=== PATIENT | male | born 1960 | race Caucasian/White ===

== ENCOUNTER 2020-09-18 07:35 | Outpatient (CLI) | payer OTHER | END 2020-09-18 07:41 | disposition home or self-care (01) | LOC: LAB 07:35 | PROVIDERS: ATTEND Urology | DX: I10 Essential (primary) hypertension (principal); E78.00 Pure hypercholesterolemia, unspecified; N39.0 Urinary tract infection, site not specified; R73.09 Other abnormal glucose; N40.1 Benign prostatic hyperplasia with lower urinary tract symptoms; E29.1 Testicular hypofunction ==

== ENCOUNTER 2021-01-28 06:20 | Outpatient (CLI) | payer OTHER | END 2021-01-28 06:21 | disposition home or self-care (01) | LOC: LAB 06:20 | PROVIDERS: ATTEND Urology | DX: E29.1 Testicular hypofunction (principal) ==

== ENCOUNTER → 2021-08-12 06:20 | Outpatient (CLI) | payer OTHER | END | disposition home or self-care (01) | LOC: LAB 06:20 | PROVIDERS: ATTEND Urology | DX: I10 Essential (primary) hypertension (principal); E78.00 Pure hypercholesterolemia, unspecified; N39.0 Urinary tract infection, site not specified; R73.09 Other abnormal glucose ==

== ENCOUNTER → 2021-12-29 08:21 | Outpatient (CLI) | payer OTHER | END | disposition home or self-care (01) | LOC: LAB 08:21 | PROVIDERS: ATTEND Urology | DX: R31.29 Other microscopic hematuria (principal); N20.0 Calculus of kidney ==

== ENCOUNTER → 2022-08-14 06:33 | Outpatient (CLI) | payer OTHER | END | disposition home or self-care (01) | LOC: LAB 06:33 | PROVIDERS: ATTEND Urology | DX: I10 Essential (primary) hypertension (principal); E78.00 Pure hypercholesterolemia, unspecified; N39.0 Urinary tract infection, site not specified; R73.03 Prediabetes; N40.1 Benign prostatic hyperplasia with lower urinary tract symptoms; E29.1 Testicular hypofunction ==

== ENCOUNTER 2023-02-12 06:33 | Outpatient (CLI) | payer OTHER | END 2023-02-12 06:35 | disposition home or self-care (01) | LOC: LAB 06:33 | PROVIDERS: ATTEND Urology | DX: N39.0 Urinary tract infection, site not specified (principal); R73.03 Prediabetes; N40.1 Benign prostatic hyperplasia with lower urinary tract symptoms; E29.1 Testicular hypofunction; I10 Essential (primary) hypertension ==

== ENCOUNTER 2023-05-14 11:54 | Emergency (ER) | payer OTHER ==
[~2023-05-14] VITALS: Ht 165.1 cm; Wt 73.5 kg
== END 2023-05-14 13:58 | disposition home or self-care (01) ==
LOC: ER 11:54
DX: K42.9 Umbilical hernia without obstruction or gangrene (principal); Z88.0 Allergy status to penicillin

== ENCOUNTER → 2023-07-26 06:06 | Outpatient (CLI) | payer OTHER ==
[2023-07-26 07:16] LABS: URINE APPEARANCE Clear; URINE BILIRRUBIN Negative (NEGATIVE); URINE BLOOD Negative; URINE COLOR Yellow; URINE GLUCOSE Negative (NEGATIVE); URINE LEUKOCYTE Negative; URINE NITRATE Negative; URINE PROTEIN Negative (NEGATIVE)
[2023-07-26 07:22] LABS: URINE BACTERIA 0 uL (0.0-1933); URINE RBC 0.4 uL (0.0-20.8); URINE WBC 0.6 uL (0.0-23.2)
[2023-07-26 07:28] LABS: HEMATOCRIT 40.4 % (39.0-48.0); HEMOGLOBIN 14.2 g/dL (13-16.00); MEAN CELL VOLUME 91.7 fL (80.0-100.00); MEAN CORPUSCULAR HEMOGLOBIN 32.3 pg (27.00-32.0); MEAN CORPUSCULAR HGB CONC 35.2 g/dl (32.0-36.0); PLATELET COUNT 148 K/uL (150-450); RED CELL DISTRIBUTION WIDTH 13.3 % (11.5-14.5)
[2023-07-26 08:19] LABS: ALBUMIN 3.8 gm/dL (3.4-5.0); BILIRUBIN TOTAL 0.84 mg/dL (0.3-1.2); CALCIUM 9.3 mg/dL (8.5-10.1); CHOL HDL RATIO 3.5 (0-5.0); CREATININE SERUM 0.89 mg/dL (0.70-1.30); GFR 86.61; GLOBULINA 3.1 G/DL (2.4-3.5); POTASSIUM 4.34 mEq/L (3.5-5.1); TOTAL PROTEIN 6.9 gm/dL (6.4-8.2)
[2023-07-26 08:24] LABS: PROSTATIC SPECIFIC ANTIGEN 4.09 NG/ML (0.010-4.00)
== END | disposition home or self-care (01) ==
LOC: LAB 06:06
PROVIDERS: ATTEND Urology
DX: I10 Essential (primary) hypertension (principal); E78.5 Hyperlipidemia, unspecified; N39.0 Urinary tract infection, site not specified; R73.03 Prediabetes; N40.1 Benign prostatic hyperplasia with lower urinary tract symptoms; E29.1 Testicular hypofunction

== ENCOUNTER 2023-08-31 13:48 | Outpatient (CLI) | payer OTHER | END 2023-08-31 14:00 | disposition home or self-care (01) | LOC: MRI 13:48 | PROVIDERS: ATTEND Physical Medicine & Rehabilitation | DX: M54.50 Low back pain, unspecified (principal); M54.16 Radiculopathy, lumbar region | CPT/HCPCS: 72148 ==

== ENCOUNTER 2023-09-03 14:10 | Outpatient (CLI) | payer OTHER ==
[2023-09-03 15:09] LABS: CREATININE SERUM 0.89 mg/dL (0.70-1.30)
== END 2023-09-03 14:11 | disposition home or self-care (01) ==
LOC: LAB 14:10
PROVIDERS: ATTEND Radiology Diagnostic Radiology
DX: N28.1 Cyst of kidney, acquired (principal)

== ENCOUNTER 2023-09-06 07:05 | Outpatient (CLI) | payer OTHER | END 2023-09-06 07:21 | disposition home or self-care (01) | LOC: TOM 07:05 | PROVIDERS: ATTEND Urology | DX: N28.1 Cyst of kidney, acquired (principal) ==

== ENCOUNTER → 2024-03-24 06:05 | Outpatient (CLI) | payer OTHER ==
[2024-03-24 07:20] LABS: HEMATOCRIT 41.7 % (39.0-48.0); HEMOGLOBIN 14.7 g/dL (13-16.00); MEAN CELL VOLUME 93.9 fL (80.0-100.00); MEAN CORPUSCULAR HGB CONC 35.2 g/dl (32.0-36.0); PLATELET COUNT 153 K/uL (150-450); RED BLOOD COUNT 4.44 M/uL (4.00-6.00); RED CELL DISTRIBUTION WIDTH 13.1 % (11.5-14.5)
[2024-03-24 07:34] LABS: URINE APPEARANCE Clear; URINE BILIRRUBIN Negative (NEGATIVE); URINE BLOOD Negative; URINE COLOR Yellow; URINE GLUCOSE Negative (NEGATIVE); URINE KETONE Negative (NEGATIVE); URINE LEUKOCYTE Negative; URINE NITRATE Negative; URINE PROTEIN Negative (NEGATIVE)
[2024-03-24 07:41] LABS: URINE BACTERIA 2.5 uL (0.0-1933); URINE EPITHELIAL CELLS 0.3 uL (0.0-38.8); URINE RBC 0.7 uL (0.0-20.8); URINE WBC 0.4 uL (0.0-23.2)
[2024-03-24 08:55] LABS: BILIRUBIN TOTAL 0.54 mg/dL (0.3-1.2); CALCIUM 9.3 mg/dL (8.5-10.1); CHOL HDL RATIO 3.1 (0-5.0); CREATININE SERUM 0.81 mg/dL (0.70-1.30); GFR 96.56; GLOBULINA 3.2 G/DL (2.4-3.5); POTASSIUM 3.92 mEq/L (3.5-5.1); TOTAL PROTEIN 7.2 gm/dL (6.4-8.2)
[2024-03-24 09:08] LABS: PROSTATIC SPECIFIC ANTIGEN 5.11 NG/ML (0.010-4.00)
[2024-03-25 09:14] LABS: LEUTEINIZING HORMONE 8.7 mIU/mL (1.7-8.6); PROLACTIN 7.4 ng/mL (3.6-25.2)
[2024-03-28 07:07] LABS: test free 8.4 pg/mL (6.6-18.1)
== END | disposition home or self-care (01) ==
LOC: LAB 06:05
PROVIDERS: ATTEND Urology
DX: E78.00 Pure hypercholesterolemia, unspecified (principal); I10 Essential (primary) hypertension; N39.0 Urinary tract infection, site not specified; R73.03 Prediabetes; N40.1 Benign prostatic hyperplasia with lower urinary tract symptoms; E29.1 Testicular hypofunction

== ENCOUNTER 2024-04-29 10:49 | Outpatient (CLI) | payer OTHER ==
[2024-04-29 12:31] LABS: INR 1.04; PARTIAL THROMBOPLASTIN TIME 26.2 SECONDS (22.0-34.0); PROTHROMBIN TIME 11.3 SECONDS (9.0-11.5)
== END 2024-04-29 23:00 | disposition home or self-care (01) ==
LOC: LAB 10:49
PROVIDERS: ATTEND Urology
DX: R97.20 Elevated prostate specific antigen [PSA] (principal); D68.9 Coagulation defect, unspecified

== ENCOUNTER 2024-11-16 06:15 | Outpatient (CLI) | payer OTHER ==
[2024-11-16 07:03] LABS: HEMATOCRIT 41.5 % (39.0-48.0); HEMOGLOBIN 14.6 g/dL (13-16.00); MEAN CELL VOLUME 94.3 fL (80.0-100.00); MEAN CORPUSCULAR HEMOGLOBIN 33.1 pg (27.00-32.0); MEAN CORPUSCULAR HGB CONC 35.1 g/dl (32.0-36.0); PLATELET COUNT 143 K/uL (150-450); RED CELL DISTRIBUTION WIDTH 13.3 % (11.5-14.5)
[2024-11-16 07:04] LABS: URINE APPEARANCE Clear; URINE BILIRRUBIN Negative (NEGATIVE); URINE BLOOD Negative; URINE COLOR Yellow; URINE GLUCOSE Negative (NEGATIVE); URINE KETONE Negative (NEGATIVE); URINE LEUKOCYTE Negative; URINE NITRATE Negative; URINE PROTEIN Negative (NEGATIVE)
[2024-11-16 07:12] LABS: URINE BACTERIA 2.4 uL (0.0-1933); URINE EPITHELIAL CELLS 0.3 uL (0.0-38.8); URINE RBC 0.7 uL (0.0-20.8); URINE WBC 1.7 uL (0.0-23.2)
[2024-11-16 12:14] LABS: CHOL HDL RATIO 2.9 (0-5.0)
== END 2024-11-16 06:21 | disposition home or self-care (01) ==
LOC: LAB 06:15
DX: D64.9 Anemia, unspecified (principal); N39.0 Urinary tract infection, site not specified; R73.01 Impaired fasting glucose; R73.09 Other abnormal glucose; E78.2 Mixed hyperlipidemia; E78.5 Hyperlipidemia, unspecified